=== PATIENT | female | born 1960 | race Caucasian/White ===

== ENCOUNTER 2017-09-26 06:06 | Inpatient (IN) | payer MEDICARE, MEDICAID ==
[~2017-09-26] VITALS: Ht 167.6 cm; Wt 75.3 kg
[~2017-09-26 06:06] MED LIST: BISA-81 PO; CALC-25 PO; CHOL100046 PO; FOLI-43 PO; OXCA300T31 PO; SIMV10TA6 PO; ZIPR80CA2 PO
[2017-09-26 06:46] LABS: HEMATOCRIT. 35.6 % (36.0-48.0); HEMOGLOBIN. 11.9 g/dL (12.0-16.0); MEAN CORPUSCULAR HEMOGLOBIN 29.5 pg (28.0-32.0); MEAN CORPUSCULAR VOLUME 88.2 fL (81.0-99.0); MEAN PLATELET VOLUME 9.7 fl (7.4-10.4); PLATELET 129 x1000/uL (130-400); RED BLOOD CELL COUNT 4.04 mill/uL (4.2-5.4); RED CELL DISTRIBUTION WIDTH 12.9 % (11.6-14.6)
[2017-09-26 06:53] LABS: PROTHROMBIN TIME 10.4 sec (9.4-11.6)
[2017-09-26 06:56] LABS: CHLORIDE 95 mEq/L (98-107)
[2017-09-26 07:01] LABS: TROPONIN I < 0.02 ng/mL (0.00-0.04)
[2017-09-26 07:50] LABS: PLATELET ESTIMATE NORMAL
[2017-09-26] MEDS ORDERED: POTASSIUM CHLORIDE 20MEQ TABLET SR PO ONE (08:00)
[2017-09-26 09:34] LABS: CLARITY URINE CLOUDY (CLEAR); COLOR URINE YELLOW (YELLOW); KETONES URINE 1+ (NEGATIVE); LEUKOCYTE ESTERASE URINE 3+ (NEGATIVE); NITRITE URINE NEGATIVE (NEGATIVE); OCCULT BLOOD URINE NEGATIVE (NEGATIVE); PROTEIN URINE TRACE (NEGATIVE); SPECIFIC GRAVITY URINE 1.017 (1.005-1.030); UROBILINOGEN URINE 0.2 E.U./dL (0.2-1.0)
[2017-09-26] MEDS ORDERED: CEFTRIAXONE 1 G PREMIX 50 ML IV ONE (09:45)
[2017-09-26] MEDS ORDERED: GUAIFENESIN 200MG/10ML SUGAR FREE UDC PO PRN (11:00)
[2017-09-26] MEDS ORDERED: NITROGLYCERIN 0.4MG TABLET SL SL PRN (11:00)
[2017-09-26] MEDS ORDERED: ACETAMINOPHEN 325MG TABLET PO PRN (11:00)
[2017-09-26] MEDS ORDERED: ONDANSETRON HCL 4MG/2ML VIAL IV PRN (11:00)
[2017-09-26] MEDS ORDERED: DOCUSATE SODIUM 100MG CAPSULE PO PRN (11:00)
[2017-09-26] MEDS ORDERED: NA PHOS,M-B/NA PHOS,DI-BA ENEMA 118ML PR PRN (11:00)
[2017-09-26] MEDS ORDERED: CLONIDINE 0.1MG TABLET PO PRN (11:00)
[2017-09-26] MEDS ORDERED: TRAMADOL 50MG TABLET PO PRN (11:00)
[2017-09-26] MEDS: ENOXAPARIN 40MG/0.4ML SYR SUBCUT SCH (11:00)
[2017-09-26] MEDS ORDERED: MAGNESIUM/ALUMINUM HYDROXIDE/SIMETHICONE 30ML UDC PO PRN (11:00)
[2017-09-26] MEDS ORDERED: KETOROLAC 15MG/ML VIAL IV PRN (11:00)
[2017-09-26] MEDS ORDERED: IPRATROPIUM/ALBUTEROL 0.5-3(2.5)MG/3ML NEB INH PRN (11:00)
[2017-09-26 11:29] LABS: ETHANOL BLOOD < 10 mg/dL
[2017-09-26 11:39] LABS: HDL CHOLESTEROL 76 mg/dL (40-59); LDL CHOLESTEROL 63 mg/dL (5-100)
[2017-09-26 12:00] VITALS: BP 159/78
[2017-09-26 12:02] LABS: VITAMIN B12 SERUM 517 pg/mL (211-911)
[2017-09-26 12:03] LABS: FOLIC ACID (FOLATE) SERUM > 20.00 ng/mL (>5.38)
[2017-09-26 13:05] VITALS: BP 134/68
[2017-09-26] MEDS: LEVOFLOXACIN 500MG PREMIX 100 ML IV SCH (13:30)
[2017-09-26] MEDS ORDERED: KCL 20MEQ/100ML PREMIX 100 ML IV NR (13:30)
[2017-09-26 16:00] VITALS: BP 147/77
[2017-09-26 17:09] LABS: CREATINE KINASE 47 IU/L (26-192); CREATINE KINASE MB FRACTION 0.8 ng/mL (0.5-3.6); TROPONIN I < 0.02 ng/mL (0.00-0.04)
[2017-09-26 20:40] VITALS: BP 140/67
[2017-09-26] MEDS ORDERED: ZOLPIDEM TARTRATE 5MG TABLET PO PRN (21:00)
[2017-09-26] MEDS: FAMOTIDINE 20MG/2ML VIAL IV SCH (21:30)
[2017-09-26] MEDS: METOPROLOL TARTRATE 25MG TABLET PO SCH (21:31)
[2017-09-26] MEDS: OXCARBAZEPINE 300MG TABLET PO SCH (21:31)
[2017-09-26] MEDS: LORAZEPAM 0.5MG TABLET PO PRN (21:34)
[2017-09-26] MEDS: DIPHENHYDRAMINE 50MG/ML VIAL IV PRN (21:35)
[2017-09-27] VITALS (8 sets, daily range): BP systolic 117–165; BP diastolic 68–85
[2017-09-27 01:48] LABS: CREATINE KINASE 53 IU/L (26-192); CREATINE KINASE MB FRACTION 1.1 ng/mL (0.5-3.6); TROPONIN I < 0.02 ng/mL (0.00-0.04)
[2017-09-27] MEDS: FAMOTIDINE 20MG/2ML VIAL IV SCH ×2 (08:41→21:11)
[2017-09-27] MEDS: ENOXAPARIN 40MG/0.4ML SYR SUBCUT SCH (08:41)
[2017-09-27] MEDS: METOPROLOL TARTRATE 25MG TABLET PO SCH ×2 (08:46→21:11)
[2017-09-27] MEDS: ASPIRIN 325MG EC TABLET PO SCH (08:47)
[2017-09-27] MEDS: OXCARBAZEPINE 300MG TABLET PO SCH ×2 (09:08→21:11)
[2017-09-27 10:10] LABS: *AMPHETAMINES SCREEN URINE NEGATIVE (NEGATIVE); *BARBITURATES SCREEN URINE NEGATIVE (NEGATIVE); *BENZODIAZEPINES SCREEN URINE NEGATIVE (NEGATIVE); *COCAINE SCREEN URINE NEGATIVE (NEGATIVE); METHADONE URINE SCREEN NEGATIVE (NEGATIVE); OPIATES URINE SCREEN NEGATIVE (NEGATIVE)
[2017-09-27 10:13] LABS: CANNABINOID URINE SCREEN NEGATIVE (NEGATIVE); PHENCYCLIDINE URINE SCREEN NEGATIVE (NEGATIVE)
[2017-09-27] MEDS: LEVOFLOXACIN 500MG PREMIX 100 ML IV SCH (13:30)
[2017-09-27] MEDS: DIPHENHYDRAMINE 50MG/ML VIAL IV PRN (22:02)
[2017-09-28] VITALS (7 sets, daily range): BP systolic 107–163; BP diastolic 52–88
[2017-09-28] MEDS: ASPIRIN 325MG EC TABLET PO SCH (09:43)
[2017-09-28] MEDS: OXCARBAZEPINE 300MG TABLET PO SCH ×2 (09:43→21:18)
[2017-09-28] MEDS: FAMOTIDINE 20MG/2ML VIAL IV SCH ×2 (09:44→21:18)
[2017-09-28] MEDS: METOPROLOL TARTRATE 25MG TABLET PO SCH ×2 (09:44→21:00)
[2017-09-28] MEDS: ENOXAPARIN 40MG/0.4ML SYR SUBCUT SCH (09:44)
[2017-09-28] MEDS ORDERED: POTASSIUM CHLORIDE 20MEQ TABLET SR PO NR (11:30)
[2017-09-28] MEDS: LEVOFLOXACIN 500MG PREMIX 100 ML IV SCH (12:24)
[2017-09-28] MEDS: DIPHENHYDRAMINE 50MG/ML VIAL IV PRN (22:28)
[2017-09-29 04:00] VITALS: BP 113/66
[2017-09-29 07:48] VITALS: BP 119/67
[2017-09-29] MEDS: FAMOTIDINE 20MG/2ML VIAL IV SCH ×2 (09:19→21:49)
[2017-09-29] MEDS: METOPROLOL TARTRATE 25MG TABLET PO SCH ×2 (09:19→21:49)
[2017-09-29] MEDS: ASPIRIN 325MG EC TABLET PO SCH (09:19)
[2017-09-29] MEDS: OXCARBAZEPINE 300MG TABLET PO SCH ×2 (09:19→21:49)
[2017-09-29] MEDS: ENOXAPARIN 40MG/0.4ML SYR SUBCUT SCH (09:20)
[2017-09-29] MEDS: LEVOFLOXACIN 500MG PREMIX 100 ML IV SCH (09:20)
[2017-09-29 11:30] VITALS: BP 142/70
[2017-09-29 13:25] LABS: BASOPHILS % 0.4 % (0.0-2.0); EOSINOPHILS % 1.1 % (0.0-5.0); HEMATOCRIT. 37.5 % (36.0-48.0); HEMOGLOBIN. 12.7 g/dL (12.0-16.0); LYMPHOCYTES % 31.9 % (20.0-50.0); MEAN CORPUSCULAR HEMOGLOBIN 30.3 pg (28.0-32.0); MEAN CORPUSCULAR VOLUME 89.5 fL (81.0-99.0); MEAN PLATELET VOLUME 9.5 fl (7.4-10.4); MONOCYTES % 12.1 % (2.0-8.0); NEUTROPHILS % 54.5 % (40.0-76.0); PLATELET 175 x1000/uL (130-400); RED BLOOD CELL COUNT 4.19 mill/uL (4.2-5.4)
[2017-09-29 14:46] LABS: CHLORIDE 108 mEq/L (98-107)
[2017-09-29 15:29] VITALS: BP 147/68
[2017-09-29 20:00] VITALS: BP 149/61
[2017-09-29] MEDS: LORAZEPAM 0.5MG TABLET PO PRN (21:49)
[2017-09-29] MEDS: DIPHENHYDRAMINE 50MG/ML VIAL IV PRN (22:30)
[2017-09-30 00:07] VITALS: BP 117/61
[2017-09-30 04:00] VITALS: BP 113/65
[2017-09-30 08:14] VITALS: BP 101/58
[2017-09-30] MEDS: OXCARBAZEPINE 300MG TABLET PO SCH (08:34)
[2017-09-30] MEDS: FAMOTIDINE 20MG/2ML VIAL IV SCH (08:34)
[2017-09-30] MEDS: ASPIRIN 325MG EC TABLET PO SCH (08:34)
[2017-09-30] MEDS: ENOXAPARIN 40MG/0.4ML SYR SUBCUT SCH (08:35)
[2017-09-30] MEDS: METOPROLOL TARTRATE 25MG TABLET PO SCH (09:00)
[2017-09-30] MEDS: LEVOFLOXACIN 500MG PREMIX 100 ML IV SCH (11:01)
[2017-09-30 12:04] VITALS: BP 100/52
[2017-09-30 14:17] VITALS: BP 100/52
[2017-09-30 16:07] VITALS: BP 109/45
== END 2017-09-30 17:55 | disposition home or self-care (01) | DRG 689 ==
LOC: ER 06:06 → 6WST 09:52 → EDBEDREQ 09:55 → SUPCPDRO 10:43 → ENRESERV 11:18
PROVIDERS: ADMIT Internal Medicine; ATTEND Internal Medicine
DX: N39.0 Urinary tract infection, site not specified (principal); G93.40 Encephalopathy, unspecified; E87.6 Hypokalemia; I10 Essential (primary) hypertension; D64.9 Anemia, unspecified; E78.00 Pure hypercholesterolemia, unspecified; G40.909 Epilepsy, unspecified, not intractable, without status epilepticus; Z79.899 Other long term (current) drug therapy
CPT/HCPCS: 36415; 70450; 71045; 80048; 80053; 80061; 80305; 81003; 82550; 82553; 82607; 82746; 83036; 83735; 83880; 84439; 84443; 84484; 85025; 85610; 87077; 87086; 87186; 93005; 93306; 93970; 96365; 96372; 99285; A6261; G0482; J0696; J1200; J1650; J1956; J3480; J3490; J7050